=== PATIENT | female | born 1980 | race African-American/Black ===

== ENCOUNTER 2016-10-04 03:35 | Emergency (ER) | payer MEDICAID ==
[~2016-10-04] VITALS: Ht 167.6 cm; Wt 53.1 kg
[2016-10-04] MEDS ORDERED: IV SET PRIMARY 1 EA INFUS.SET MC ONE (04:47)
[2016-10-04] MEDS ORDERED: METOCLOPRAMIDE HCL 10 MG/2 ML VIAL ONE (04:47)
[2016-10-04] MEDS ORDERED: IV NS 0.9% 1,000 ML ONE (04:47)
[2016-10-04] MEDS ORDERED: diphenhydrAMINE HCL 50 MG/ML VIAL ONE (04:47)
[2016-10-04] MEDS ORDERED: METOCLOPRAMIDE HCL 10 MG/2 ML VIAL IV ONE (05:00)
[2016-10-04] MEDS ORDERED: diphenhydrAMINE HCL 50 MG/ML VIAL IV ONE (05:00)
[2016-10-04] MEDS ORDERED: IV NS 0.9% 1,000 ML BAG IV ONE (05:00)
[2016-10-04 06:26] VITALS: BP 116/60
== END 2016-10-04 06:26 | disposition home or self-care (01) ==
LOC: ER 03:35
DX: G43.909 Migraine, unspecified, not intractable, without status migrainosus (principal)
CPT/HCPCS: 36415; 84703; 96361; 96374; 96375; 99284; A4606; J1200; J2765; J7030; Z7610

== ENCOUNTER 2018-12-14 10:10 | Emergency (ER) | payer MEDICAID ==
[~2018-12-14] VITALS: Ht 157.5 cm; Wt 55.3 kg
--- NOTE | 2018-12-14 10:10 | NUR ---
PT BIB C/O SEVERE RIGHT SIDED HEADACHE, R SIDED WEAKNESS AND DIZZINESS X 3 DAYS, PT IS AAOX3, NOT IN RESPIRATORY DISTRESS, V/S STABLE, KEPT RESTED AND COMFORTABLE, HOOKED TO MONITOR.
--- NOTE | 2018-12-14 11:00 | NUR ---
PT IV LINE ESTABLISHED, LABS DRAWNED AND SENT TO LAB.
--- NOTE | 2018-12-14 11:13 | NUR ---
URINE SPECIMEN COLLECTED AND SENT TO LAB.
--- NOTE | 2018-12-14 11:50 | NUR ---
PT IS WHEELED TO CT SCAN.
[2018-12-14] MEDS ORDERED: ACETAMINOPHEN 325 MG TABLET ONE (11:52)
[2018-12-14] MEDS ORDERED: IV NS 0.9% 1,000 ML BAG IV ONE (12:00)
[2018-12-14] MEDS ORDERED: ACETAMINOPHEN 650 MG/20.3 ML UDC PO ONE (12:00)
[2018-12-14] MEDS ORDERED: ASPIRIN EC 325 MG TABLET.DR PO ONE ×2 (14:00→14:20)
--- NOTE | 2018-12-14 14:24 | NUR ---
TALKED TO REHAB CONSULTANT REGARDING PT INFO AND TRANSFER.
--- NOTE | 2018-12-14 14:29 | NUR ---
PATIENT WILL BE TRANSFERRED TO [facility] TO ROOM 626 NUMBER FOR REPORT ACCEPTING IS DR. HERNANDEZ AUTH NUMBER FOR AMBULANCE IS [id number]
--- NOTE | 2018-12-14 15:02 | NUR ---
REPORT GIVEN TO DELMAR GIBSON OF [facility] FOR [facility].
--- NOTE | 2018-12-14 15:13 | NUR ---
SET UP ALS RIG WITH DAWNA QUARLES [id number] - TRIP # [id number]
--- NOTE | 2018-12-14 15:32 | NUR ---
REPORT GIVEN TO EMT FOR TRANSFER TO [facility].
[2018-12-14 15:39] VITALS: BP 130/82
== END 2018-12-14 15:41 | disposition short-term general hospital (02) ==
LOC: ER 10:10
DX: G43.909 Migraine, unspecified, not intractable, without status migrainosus (principal); R53.1 Weakness
CPT/HCPCS: 70450; 82962; 84703; 96360; 99285; A4606; J7030

== ENCOUNTER 2021-05-06 06:37 | Emergency (ER) | payer MEDICAID, OTHER ==
[~2021-05-06] VITALS: Ht 154.9 cm; Wt 51.7 kg
--- NOTE | 2021-05-06 06:40 | NUR ---
PT AAOX4. AMBULATORY WITH STEADY GAIT. BIBSELF C/O HAVING "UTI SYMPTOMS" DYSURIA AND ABD PAIN X 1 WEEK. PLACED IN BED 9 ON MONITOR AND PULSE OX.
[2021-05-06 08:04] LABS: BILIRUBIN,URINE NEGATIVE (NEGATIVE); LEUKOCYTE ESTERASE ,URINE LARGE (NEGATIVE); NITRITE, URINE NEGATIVE (NEGATIVE); PH,URINE 6.5 (5.0-8.0); PROTEIN,URINE NEGATIVE (NEGATIVE); UGLUCOSE NEGATIVE (NEGATIVE); UROBILINOGEN,URINE 0.2 EU/dL (0.2)
[2021-05-06 08:05] LABS: COLOR,URINE LIGHT YELLOW (YELLOW)
[2021-05-06 08:16] LABS: BACTERIA,URINE Moderate /HPF (None Seen); SQUAMOUS EPITHELIAL CELL,UR Few /HPF (None Seen); WBC,URINE 51-80 /HPF (0-3)
[2021-05-06] MEDS ORDERED: CEPH500C2 PO (08:24)
[2021-05-06 08:53] VITALS: BP 132/84
--- NOTE | 2021-05-06 08:53 | NUR ---
Patient discharged to home in stable condition. Written and verbal after care instructions given. Patient verbalizes understanding of instruction.
== END 2021-05-06 08:54 | disposition home or self-care (01) ==
LOC: ER 06:40
DX: N39.0 Urinary tract infection, site not specified (principal); G43.909 Migraine, unspecified, not intractable, without status migrainosus
CPT/HCPCS: 81001; 84703-TC; 87086-TC; 87186-TC